=== PATIENT | male | born 1975 ===

== ENCOUNTER 2017-11-04 07:02 | Emergency (ER) | payer MEDICAID ==
[2017-11-04 07:13] VITALS: BMI 29.8
[2017-11-04 07:16] VITALS: PULSE 76
[2017-11-04] MEDS ORDERED: Iohexol 240 (50 ml) PO STA (07:25)
[2017-11-04] MEDS ORDERED: Sodium Chloride 0.9% 1,000 ML IV STA (07:25)
--- NOTE | 2017-11-04 07:30 | C.PDOC ---
History Of Present Illness Patient c/o RLQ abdominal pain started at 2 am this morning, associated with nausea and vomiting. Patient denies fever, diarrhea, dysuria. Patient sts his last normal BM was yesterday morning. Patient denies surgical history. Time Seen by Provider: 11/04/17 07:19 Chief Complaint (Nursing): Abdominal Pain Past Medical History Reviewed: Historical Data, Nursing Documentation, Vital Signs Vital Signs: Last Vital Signs Temp 97.8 F 11/04/17 10:09 Pulse 76 11/04/17 10:09 Resp 16 11/04/17 10:09 BP 127/83 11/04/17 10:09 Pulse Ox 100 11/04/17 10:25 - Medical History PMH: Hepatitis Surgical History: No Surg Hx - [facility] Procedures ANT NASAL PACK FOR EPIST (11/21/13) CAUTERY TO STOP EPISTAX (11/22/13) Family History: States: Unknown Family Hx - Social History Hx Tobacco Use: No Hx Alcohol Use: No Hx Substance Use: No - Immunization History Hx Tetanus Toxoid Vaccination: No Hx Influenza Vaccination: No Hx Pneumococcal Vaccination: No Review Of Systems Except As Marked, All Systems Reviewed And Found Negative. Physical Exam - Physical Exam Appears: Non-toxic, No Acute Distress, Other (uncomfortable) Skin: Normal Color, Warm, No Rash Head: Atraumatic, Normacephalic Eye(s): bilateral: Normal Inspection Oral Mucosa: Moist Neck: Normal ROM, Supple Chest: Symmetrical, No Tenderness Cardiovascular: Rhythm Regular Respiratory: Normal Breath Sounds, No Wheezing Gastrointestinal/Abdominal: Bowel Sounds (x 4), Soft, Tenderness (RLQ), Guarding , Rebound, Hernia (umbilical, redusable) Back: Normal Inspection, No Vertebral Tenderness, No Paraspinal Tenderness Extremity: Normal ROM Neurological/Psych: Oriented x3, Normal Speech, Normal Cognition ED Course And Treatment - Laboratory Results Result Diagrams: 11/04/17 07:36 11/04/17 07:36 O2 Sat by Pulse Oximetry: 100 - CT Scan/US Abdominal CT Other Rad Studies (CT/US): Read By Radiologist, Radiology Report Reviewed CT/US Interpretation: Accession No. : [id number]. Patient Name / ID : ANDRIY CROCKER / [id number]. Exam Date : 11/04/2017 09:12:56 ( Approved ). Study Comment : Sex / Age : M / 42Y. Creator : Francisca De La Paz. Dictator : Francisca De La Paz. Time Checker : Strip Stamp Straightener : Francisca Honeycutt. Approver2 : Report Date : 11/04/2017 09:40:27. My Comment : . PROCEDURE: CT Abdomen and Pelvis with contrast. HISTORY: RLQ abd pain. COMPARISON: None. TECHNIQUE: Contrast dose: 100 mL visipaque. Omnipaque 240 contrast. Radiation dose: Total exam DLP = 943 mGy-cm. This CT exam was performed using one or more of the following dose reduction techniques : Automated exposure control, adjustment of the mA and/or kV according to patient size, and/or use of iterative reconstruction technique. FINDINGS: LOWER THORAX: Trace discoid atelectatic changes left lung base. LIVER: Hepatic steatosis. No gross lesion or ductal dilatation. GALLBLADDER AND BILE DUCTS: Unremarkable. PANCREAS: Unremarkable. No gross lesion or ductal dilatation. SPLEEN: Unremarkable. ADRENALS: Unremarkable. No mass. KIDNEYS AND URETERS: Mild right hydronephrosis and right hydroureter due to a distal right ureteral 3 mm obstructing calculus with right very ureteral mural thickening/ edema. Right perirenal fat inflammatory changes. Unremarkable left kidney. No suspicious renal masses. VASCULATURE: Unremarkable. No aortic aneurysm. BOWEL: Unremarkable. No obstruction. No gross mural thickening. APPENDIX: Normal appendix. PERITONEUM: Unremarkable. No free fluid. No free air. LYMPH NODES: Unremarkable. No enlarged lymph nodes. BLADDER: Unremarkable. REPRODUCTIVE: Unremarkable. BONES: No acute fracture. OTHER FINDINGS: Mall periumbilical fat only containing hernia. IMPRESSION: 3 mm obstructing distal right ureteral calculus -right acetabular roof level. Associated right hydroureter/right hydronephrosis with right perirenal inflammatory changes. Renal function otherwise fairly symmetrical. Hepatic steatosis. Periumbilical fat only containing hernia Progress Note: Plan: labs, abdominal CT, IVF, Zofran, Morphine. Patient was given Flomax, urine strainer. On re-evaluation he feels better and is stable to be d/c home with Urologist f/u. Disposition - Disposition Referrals: Germaine Hollingsworth MD [Staff Provider] - Disposition: HOME/ ROUTINE Disposition Time: 10:22 Condition: STABLE Additional Instructions: Follow up with Urologist within 1-2 days. Return to [facility] if feel worse. Prescriptions: Tamsulosin [Flomax] 0.4 mg PO DAILY #7 cap oxyCODONE/Acetaminophen [Percocet 5/325 mg Tab] 1 tab PO QID PRN #20 tab PRN Reason: Pain Ondansetron [Zofran Odt] 1 - 2 tab PO .Q4-6H PRN #20 odt PRN Reason: Nausea/Vomiting Instructions: Renal Colic (ED), How to Strain Your Urine (ED) Forms: [facility] (Liberian) Print Language: DIVEHI - Clinical Impression Clinical Impression: Renal colic on right side
[2017-11-04] MEDS ORDERED: Morphine 4 MG/ML VIAL ONE (07:41)
[2017-11-04] MEDS ORDERED: Iohexol 240 (50 ml) ONE (07:41)
[2017-11-04] MEDS ORDERED: Sodium Chloride 0.9% 1,000 ML ONE (07:42)
[2017-11-04 07:45] LABS: BASO % 0.1 % (0.0-2.0); LYMPH # 1.6 K/uL (1.0-4.3); LYMPH % 10.4 % (20.0-40.0); MEAN CELL VOLUME 87.6 fL (80.0-94.0); MEAN CORPUSCULAR HEMOGLOBIN 29.8 pg (27.0-31.0); MEAN CORPUSCULAR HGB CONC 34.1 g/dL (33.0-37.0); MEAN PLATELET VOLUME 10.5 fL (7.2-11.7); MONO # 0.8 K/uL (0.0-0.8); MONO % 5.5 % (0.0-10.0); NEUT # 12.5 K/uL (1.8-7.0); RBC 5.02 Mil/uL (4.40-5.90); RED CELL DISTRIBUTION WIDTH 12.7 % (11.5-14.5); WHITE BLOOD COUNT 14.9 K/uL (4.8-10.8)
[2017-11-04 07:52] LABS: URINE BILIRUBIN NEGATIVE (NEGATIVE); URINE BLOOD NEGATIVE (NEGATIVE); URINE CLARITY Clear (Clear); URINE COLOR Yellow (YELLOW); URINE GLUCOSE (UA) NORMAL (Normal); URINE LEUKOCYTE ESTERASE NEG Leu/uL (Negative); URINE NITRATE NEGATIVE (NEGATIVE); URINE PROTEIN NEGATIVE (NEGATIVE); URINE UROBILINOGEN NORMAL mg/dL (0.2-1.0)
[2017-11-04 07:57] LABS: ALBUMIN 4.1 g/dL (3.5-5.0); ALT/SGPT 31 U/L (21-72); AST/SGOT 21 U/L (17-59); BLOOD UREA NITROGEN 20 mg/dL (9-20); CALCIUM 8.9 mg/dl (8.6-10.4); GFR AFRICAN-AMERICAN > 60; GFR NON-AFRICAN AMERICAN > 60; LIPASE 71 U/L (23-300)
[2017-11-04 08:00] LABS: PROTHROMBIN TIME 11.2 SECONDS (9.7-12.2)
[2017-11-04] MEDS ORDERED: Iodixanol 320 MG/ML 100 ML BOTTLE IV ONE (09:02)
--- NOTE | 2017-11-04 09:41 | CT ---
PROCEDURE: CT Abdomen and Pelvis with contrast HISTORY: RLQ abd pain COMPARISON: None. TECHNIQUE: Contrast dose: 100 mL visipaque. Omnipaque 240 contrast Radiation dose: Total exam DLP = 943 mGy-cm. This CT exam was performed using one or more of the following dose reduction techniques: Automated exposure control, adjustment of the mA and/or kV according to patient size, and/or use of iterative reconstruction technique. FINDINGS: LOWER THORAX: Trace discoid atelectatic changes left lung base LIVER: Hepatic steatosis. No gross lesion or ductal dilatation. GALLBLADDER AND BILE DUCTS: Unremarkable. PANCREAS: Unremarkable. No gross lesion or ductal dilatation. SPLEEN: Unremarkable. ADRENALS: Unremarkable. No mass. KIDNEYS AND URETERS: Mild right hydronephrosis and right hydroureter due to a distal right ureteral 3 mm obstructing calculus with right very ureteral mural thickening/ edema. Right perirenal fat inflammatory changes. Unremarkable left kidney. No suspicious renal masses VASCULATURE: Unremarkable. No aortic aneurysm. BOWEL: Unremarkable. No obstruction. No gross mural thickening. APPENDIX: Normal appendix. PERITONEUM: Unremarkable. No free fluid. No free air. LYMPH NODES: Unremarkable. No enlarged lymph nodes. BLADDER: Unremarkable. REPRODUCTIVE: Unremarkable. BONES: No acute fracture. OTHER FINDINGS: Mall periumbilical fat only containing hernia. IMPRESSION: 3 mm obstructing distal right ureteral calculus -right acetabular roof level. Associated right hydroureter/right hydronephrosis with right perirenal inflammatory changes. Renal function otherwise fairly symmetrical Hepatic steatosis Periumbilical fat only containing hernia
[2017-11-04 10:09] VITALS: BP 127/83; RESP 16; TEMP 97.8
[2017-11-04 10:25] VITALS: O2SAT 100
== END 2017-11-04 10:55 | disposition home or self-care (01) ==
LOC: C.ER 07:02
DX: N23 Unspecified renal colic (principal)
CPT/HCPCS: 74177; 80053; 81001; 83690; 85025; 85610; 85730; 96361; 96374; 96375; 99283; J2270; J2405; J7040; Q9966; Q9967